=== PATIENT | female | born 1970 | race Caucasian/White ===

== ENCOUNTER 2021-08-05 18:14 | Emergency (ER) | payer OTHER, MEDICAID, SELFPAY ==
[2021-08-05 18:31] VITALS: BP 129/59; PULSE 87; RESP 18; TEMP 36.9; O2SAT 94; BMI 40.2
--- NOTE | 2021-08-05 18:47 | ED.GENADULT ---
HPI - General Adult <Jackson Rios PA-C - Last Filed: 08/05/21 19:29> General Chief complaint: Skin/Abscess/Foreign Body Stated complaint: pulled tibia and stiches is infected Time Seen by Provider: 08/05/21 18:25 History of Present Illness HPI narrative: Patient is a 51-year-old female presenting to the emergency department today for an evaluation of a surgical site infection. Patient states that she had an ORIF of a left tibia and fibular fracture on 07/12/2021 through [facility]. She states that she noticed increased swelling and pustules over the medial aspect of her left ankle over the past couple of days. She states that the swelling has begun to worsen and she notes that she has been able to express purulence material from the surgical site. Patient denies fever, chills, chest pain, cough, shortness of breath, nausea, vomiting, diarrhea, abdominal pain, dysuria, hematuria, numbness and tingling the bilateral lower extremities, or any other concerning symptoms. No further concerns were voiced at this time. Related Data Home Medications Medication Instructions Recorded Confirmed insulin regular hum U-500 conc 500 30 unit SQ TID #0 03/14/16 unit/mL subcutaneous soln (Humulin R U-500 (Concentrated) Insulin) insulin detemir U-100 100 unit/mL 60 u SQ BID #0 06/05/17 (3 mL) subcutaneous pen (Levemir FlexTouch U-100 Insulin) liraglutide 0.6 mg/0.1 mL (18 mg/3 1.2 mg SQ #0 06/05/17 mL) subcutaneous pen injector (Victoza 2-Rosas) prazosin 2 mg capsule 2 mg PO QPM #0 06/05/17 quetiapine 300 mg tablet 300 mg PO HS #0 06/05/17 Previous Rx's Medication Instructions Recorded [pen needles] units SQ 5XD #450 11/08/16 citalopram 40 mg tablet 40 mg PO QDAY #90 tab 01/02/17 ipratropium 0.5 mg-albuterol 3 mg 3 ml INH Q6H #1 box 01/05/17 (2.5 mg base)/3 mL nebulization soln omeprazole 40 mg capsule,delayed 40 mg PO QAM #90 cap 02/24/17 release Al[place] 5/16 Inch box SQ SEE INSTRUCTIONS #1 04/07/17 bupropion HCl 300 mg 24 hr tablet, 300 mg PO QDAY #90 tab 05/01/17 extended release (Wellbutrin XL) aspirin 81 mg tablet,delayed 81 mg PO QDAY #90 tab 06/05/17 release atorvastatin 40 mg tablet (Lipitor) 40 mg PO HS #90 tab 06/05/17 meloxicam 7.5 mg tablet (Mobic) 7.5 mg PO BIDCC #180 tab 06/05/17 metoprolol succinate 50 mg 50 mg PO QDAY #270 ter 06/05/17 tablet,extended release 24 hr metformin 1,000 mg tablet 1,000 mg PO BIDCC #120 tab 10/24/17 (Glucophage) furosemide 20 mg tablet 20 mg PO QDAY #90 tabs 11/22/17 gabapentin 400 mg capsule 400 mg PO HS #90 cap 11/22/17 (Neurontin) ropinirole 1 mg tablet (Requip) 0 PO SEE INSTRUCTIONS #180 tab 11/22/17 cephalexin 750 mg capsule (Keflex) 750 mg PO BID #14 cap 08/05/21 Review of Systems <Jackson Rios PA-C - Last Filed: 08/05/21 19:29> Constitutional Constitutional: Denies chills, Denies fatigue, Denies fever(s), Denies frequent falls, Denies lethargy and Denies weakness Eyes Eyes: Denies loss of vision ENT Ears, Nose, Mouth, and Throat: Denies dizziness and Denies neck pain Cardiovascular Cardiovascular: Denies chest pain, Denies irregular heart rhythm, Denies lightheadedness, Denies palpitations, Denies dyspnea, Denies dyspnea on exertion and Denies orthopnea Respiratory Respiratory: Denies cough, Denies dyspnea, Denies dyspnea on exertion and Denies wheezing Gastrointestinal Gastrointestinal: Denies abdominal pain, Denies change in bowel habits, Denies diarrhea, Denies nausea and Denies vomiting Genitourinary Genitourinary: Denies hematuria, Denies flank pain, Denies urinary incontinence and Denies urinary urgency Musculoskeletal Musculoskeletal: Denies back pain, Denies muscle weakness, Denies neck pain, Denies numbness and Denies tingling Integumentary/Breasts Skin/Breast: Denies pruritus, Denies erythema, Denies rash and Reports wounds (Left medial ankle incision site) Neurologic Neurologic: Denies behavioral changes, Denies confusion, Denies dizziness, Denies frequent falls, Denies loss of vision, Denies numbness, Denies tingling and Denies weakness Psychiatric Psychiatric: Denies behavioral changes and Denies confusion Endocrine Endocrine: Denies fatigue and Denies palpitations Allergic/Immunologic Allergic/Immunologic: Denies wheezing Patient History <Jackson Rios PA-C - Last Filed: 08/05/21 19:29> Surgical History History of carpal tunnel repair (07/17/13) History of cystoscopy (02/22/17) Social History Smoking Status: Current every day smoker Exam <Jackson Rios PA-C - Last Filed: 08/05/21 19:29> Narrative Exam Narrative: GENERAL: 51 year old patient appears stated age. Well-developed patient, in no acute distress. HEAD: Atraumatic. Normocephalic. EYES: Pupils equal round and reactive. Extraocular motions intact. No scleral icterus. No injection or drainage. ENT: Nose without bleeding, purulent drainage. Throat without erythema, tonsillar hypertrophy or exudate. Airway patent. NECK: Trachea midline. Non tender CARDIOVASCULAR: Regular rate and rhythm without murmurs, gallops, or rubs. RESPIRATORY: Clear to auscultation. Breath sounds equal bilaterally. No wheezes, rales, or rhonchi. GASTROINTESTINAL: Abdomen soft, non-tender, nondistended. EXTREMITIES: No edema or joint tenderness. Good sensation appreciated to light touch throughout the bilateral lower extremities. Gross motor function intact throughout the bilateral lower extremities. BACK: Nontender without deformity or crepitance. No flank tenderness. NEURO: AOx3. SKIN: No rash of visible areas. Well-healing surgical incisions over the left knee and left lateral ankle. Surgical incision along the medial aspect of the left ankle with approximately 2.5 cm area of surrounding erythema. No active drainage noted from the surgical incisions. No excessive swelling noted about the surgical incisions. Initial Vital Signs Initial Vital Signs: Vital Signs Temperature 98.5 F 08/05/21 18:31 Pulse Rate 87 08/05/21 18:31 Respiratory Rate 18 08/05/21 18:31 Blood Pressure 129/59 L 08/05/21 18:31 Pulse Oximetry 94 08/05/21 18:31 <DO Kishan Marks Last Filed: 08/05/21 20:19> Initial Vital Signs Initial Vital Signs: Vital Signs Temperature 98.5 F 08/05/21 18:31 Pulse Rate 87 08/05/21 18:31 Respiratory Rate 18 08/05/21 18:31 Blood Pressure 129/59 L 08/05/21 18:31 Pulse Oximetry 94 08/05/21 18:31 Course <Jackson Rios PA-C - Last Filed: 08/05/21 19:29> Course Course Narrative: Wound culture of left medial ankle obtained. Orders Ordered: ED Orders 08/05/21 18:30 Wound Culture and Gram Stain Stat Vital Signs Vital signs: Vital Signs - 8 hr 08/05/21 18:31 Temperature 98.5 F Pulse Rate 87 Respiratory Rate 18 Blood Pressure 129/59 L Pulse Oximetry 94 <DO Kishan Marks Last Filed: 08/05/21 20:19> Orders Ordered: ED Orders 08/05/21 18:30 Wound Culture and Gram Stain Stat Vital Signs Vital signs: Vital Signs - 8 hr 08/05/21 18:31 Temperature 98.5 F Pulse Rate 87 Respiratory Rate 18 Blood Pressure 129/59 L Pulse Oximetry 94 Medical Decision Making <ELIJAH Guillen Last Filed: 08/05/21 19:29> MDM Narrative Medical decision making narrative: To consider cellulitis versus surgical site infection verses contact irritant. Overall physical examination and history are reassuring. Discussed with patient the plan to begin in a biotic therapy. Patient agrees to plan. Advised patient to follow-up with the surgeon who performed her surgery for the earliest available appointment. Patient agrees to plan at this time feels comfortable being discharged home. Strict return precautions were discussed with the patient prior to discharge. Discharge Plan Departure Patient Disposition: Home Clinical Impression: Postoperative wound infection Instructions: DI for Wound Infection Activity Restrictions/Additional Instructions: *You have been diagnosed with surgical site infection *What to do: *Please continue to take your regular medications as directed. [X] New medication prescriptions sent to your pharmacy: [facility] [place] - Keflex [ ] New medication written as a paper prescription [ ] No new medications given *Please follow up with your primary care provider in 2-3 days, call for an appointment. Let them know you were seen in the Emergency Department and that we ask that you be seen in follow up. We will electronically transmit a record of today's note if your PCP is in our system. *Please follow-up with your surgeon for the earliest available appointment for follow-up and further evaluation. *If you do not have a primary care provider please contact the [facility] Resource line at [phone]. They will ask some questions about your medical history and help get you set up with a doctor in the community. *Return to Emergency Department if you should have any new, worsening or concerning symptoms, such as fever greater than 101 F, shaking chills, worsening pain, persistent vomiting or other bothersome symptoms. Prescriptions: New cephalexin [Keflex] 750 mg capsule 750 mg PO BID Qty: 14 0RF No Action insulin regular hum U-500 conc [Humulin R U-500 (Conc) Insulin] 500 UNIT/1 ML solution 30 unit SQ TID Qty: 0 0RF [pen needles] SQ 5XD Qty: 450 3RF citalopram 40 MG tablet 40 mg PO QDAY Qty: 90 1RF ipratropium-albuterol 3 ML solution for nebulization 3 ml INH Q6H Qty: 1 13RF omeprazole 40 MG capsule,delayed release(DR/EC) 40 mg PO QAM Qty: 90 3RF Al[place] 5/16 Inch SQ SEE INSTRUCTIONS Qty: 1 12RF bupropion HCl [Wellbutrin XL] 300 MG tablet extended release 24 hr 300 mg PO QDAY Qty: 90 3RF prazosin 2 MG capsule 2 mg PO QPM Qty: 0 0RF liraglutide [Victoza 2-Rosas] 0.6 MG/0.1 ML pen injector 1.2 mg SQ Qty: 0 0RF atorvastatin [Lipitor] 40 MG tablet 40 mg PO HS Qty: 90 1RF metoprolol succinate 50 MG tablet extended release 24 hr 50 mg PO QDAY Qty: 270 1RF aspirin 81 MG tablet,delayed release (DR/EC) 81 mg PO QDAY Qty: 90 3RF meloxicam [Mobic] 7.5 MG tablet 7.5 mg PO BIDCC Qty: 180 1RF insulin detemir U-100 [Levemir FlexTouch U-100 Insuln] 100 UNIT/1 ML insulin pen 60 u SQ BID Qty: 0 0RF quetiapine 300 MG tablet 300 mg PO HS Qty: 0 0RF metformin [Glucophage] 1,000 MG tablet 1,000 mg PO BIDCC Qty: 120 0RF gabapentin [Neurontin] 400 MG capsule 400 mg PO HS Qty: 90 2RF furosemide 20 MG tablet 20 mg PO QDAY Qty: 90 0RF ropinirole [Requip] 1 MG tablet 0 PO SEE INSTRUCTIONS Qty: 180 0RF <Jordy Salas, DO - Last Filed: 08/05/21 20:19> [facility] Attestation: Dr Salas Co-Sign Statement: I was available for consultation during this patient's emergency department visit. This chart is signed by myself for administrative purposes only. I did not have direct contact with this patient during this visit. They were seen independently by the APC.
== END 2021-08-05 19:00 | disposition home or self-care (01) ==
PROVIDERS: Emergency Provider Physician Assistant
DX: T81.49XA Infection following a procedure, other surgical site, initial encounter (principal); F17.200 Nicotine dependence, unspecified, uncomplicated
CPT/HCPCS: 87070; 87075; 87077; 87147; 87185; 87186; 87205; 99281